=== PATIENT | male | born 1945 | race Caucasian/White ===

== ENCOUNTER → 2017-01-08 | Outpatient (CLI) | payer MEDICARE, OTHER | LOC: SP 08:41 | PROVIDERS: ATTEND Family Medicine | DX: I65.21 Occlusion and stenosis of right carotid artery (principal) | CPT/HCPCS: 93880 ==

== ENCOUNTER 2017-03-28 06:53 | Day surgery (SDC) | payer MEDICARE, OTHER ==
[2017-03-28] MEDS ORDERED: GLYCOPYRROLATE INJ 0.4 MG/2 ML VIAL ONE (07:13)
[2017-03-28] MEDS ORDERED: NALOXONE HCL INJ/PF 0.4 MG/1 ML SDV ONE (07:13)
[2017-03-28] MEDS ORDERED: ONDANSETRON HCL INJ/PF 4 MG/2 ML SDV ONE (07:13)
[2017-03-28] MEDS ORDERED: EPINEPHRINE INJ 1 MG/10 ML DISP.SYRIN ONE (07:14)
[2017-03-28] MEDS ORDERED: GLUCAGON,HUMAN RECOMB 1 MG INJ ONE (07:14)
[2017-03-28] MEDS ORDERED: FLUMAZENIL INJ 0.5 MG/5 ML VIAL IV ONE (07:14)
[2017-03-28] MEDS: MIDAZOLAM 2 MG/2 ML INJ ONE ×5 (07:52→08:07)
[2017-03-28] MEDS: FENTANYL CITRATE INJ/PF 100 MCG/2 ML AMPUL ONE ×3 (07:54→08:03)
--- NOTE | 2017-03-28 08:37 | Operative Report ---
Operative Report DATE OF SURGERY: 03/28/17 PREOPERATIVE DIAGNOSIS: 1. Pandiverticulosis. 2. Multiple small sessile elevations of the rectosigmoid region POSTOPERATIVE DIAGNOSIS: Same OPERATION: 1. Total colonoscopy to cecum. 2. Rectal polypectomy at 20 cm from anal verge SURGEON: SANDEEP SETHI ANESTHESIA: Moderate Sedation TISSUE REMOVED OR ALTERED: 1 polyp COMPLICATIONS: None ESTIMATED BLOOD LOSS: None INTRAOPERATIVE FINDINGS: See below PROCEDURE: Obtaining informed consent the patient was taken from the preoperative holding area to the main endoscopy suite where monitoring devices were attached to the patient. Plan and surgical timeout were conducted The patient was placed in the left lateral decubitus position with knees to chest. A perianal examination was performed. There was no visible or palpable anorectal pathology. Sphincter tone was felt to be normal. The posterior surface of the prostate gland was enlarged but smooth The flexible adult colonoscope was advanced through the anal rectal canal, all the way to the cecum. Visualization of the cecum was achieved and the ileocecal valve, the appendiceal orifice and transillumination of the anterior abdominal wall all appreciated.. This was an excellent study on the well- prepped bowel. The colonoscope was withdrawn slowly and methodically checked and the mucosa carefully. There was no evidence of tumor, stricture, bleeding or polyp. There were extensive diverticulosis primarily of the descending colon and right colon. No evidence of inflammation or stricture The scope was slowly withdrawn through the anal rectal canal; there are multiple small sessile elevations possibly consistent with hyperplastic polyps versus lymphoid hyperplasia. Photos were taken. One small area was removed and labeled rectal polyp at approximately 20 cm from the anal verge. Complete visualization of the rectum was achieved with photodocumentation. The scope was withdrawn to the patient's anus. The patient tolerated the procedure well and was taken to the recovery area in stable condition. Surveillance colonoscopy will depend upon the final pathology report; likely to be in 3 years
--- NOTE | 2017-03-28 08:38 | PDOC DISCHARGE SUMMARY ---
Discharge Summary (SDC) - Discharge Final Diagnosis: Pandiverticulosis and rectal polyp Date of Surgery: 03/28/17 Discharge Date: 03/28/17 Condition: Good Treatment or Instructions: [facility] [place] [id number] POST ENDOSCOPY DISCHARGE INSTRUCTIONS 1. Diet: Start clear liquids that a regular diet as tolerated. 2. Resume all preoperative medications. All oral anticoagulants and aspirins can be resumed 24 hours after procedure. 3. If a polypectomy was performed some bleeding per rectum may occur. This should stop within 3 days. If not, please contact the office. 4. If you had a colonoscopy you may experience some bloating and delayed return of normal bowel function for several days, your regular bowel movement pattern should resume within a week. 5. Please contact [facility] at to make an appointment with Dr. Gardner for 1 to 3 weeks following procedure. 6. If you have any questions or concerns regarding your care,treatment plan or follow up, please contact our office. 7. Per clinical guidelines we recommend you undergo a repeat colonoscopy in 3 years pending final path report Discharge Activity: Activity As Tolerated Home Care Assistance: None Needed Report the Following to Your Physician Immediately: Shortness of Breath, Increase in Pain, Fever over 101 Degrees
[2017-03-28 09:42] VITALS: BP 121/82
== END 2017-03-28 09:39 | disposition home or self-care (01) ==
LOC: END 06:53
PROVIDERS: ATTEND Surgery
PROC: 0DBP8ZX Excision of Rectum, Via Natural or Artificial Opening Endoscopic, Diagnostic (ICD-10-PCS; 2017-03-28)
PROC: 0DBN8ZX Excision of Sigmoid Colon, Via Natural or Artificial Opening Endoscopic, Diagnostic (ICD-10-PCS; principal; 2017-03-28 07:30)
DX: Z12.11 Encounter for screening for malignant neoplasm of colon (principal); K57.30 Diverticulosis of large intestine without perforation or abscess without bleeding; K63.5 Polyp of colon; I10 Essential (primary) hypertension; E07.9 Disorder of thyroid, unspecified; Z87.442 Personal history of urinary calculi; Z79.899 Other long term (current) drug therapy
CPT/HCPCS: 45380; 88305 ×2; J2250; J0171; J3010; J1610; J2310; J2405; J3490

== ENCOUNTER → 2017-07-12 | Outpatient (CLI) | payer MEDICARE, OTHER ==
--- NOTE | 2017-07-12 11:23 | RADIOLOGY REPORT (SQ) ---
EXAM DESCRIPTION: CT LUNG CANCER SCREENING COMPLETED DATE/TIME: 07/12/2017 10:07 am REASON FOR STUDY: TOBACCO USE Z72.0 TOBACCO USE Has the patient had a Chest CT scan within the past year? No Was the patient offered tobacco cessation counseling? Yes Was the patient engaged in shared decision making for this test? Yes Does the patient have signs or symptoms of Lung Cancer? No Is the patient a smoker? Yes smoker for 55 years How many packs per year? 547 How many years since quitting smoking? Not applicable Patients age: 71 COMPARISON: None. TECHNIQUE: Low Dose CT scan performed of the chest without intravenous contrast for purposes of scre ening for lung cancer. Images reviewed with lung, soft tissue and bone windows. Reconstructed coron al and sagittal MPR images reviewed. All images stored on PACS. All CT scanners at this facility use dose modulation, iterative reconstruction, and/or weight based d osing when appropriate to reduce radiation dose to as low as reasonably achievable (ALARA). [facility]: Dose Right [facility]: CareDose [facility]: Dose Right [facility]: Teradose 4D [facility]: [employer] RADIATION DOSE: Up-to-date CT equipment and radiation dose reduction techniques were employed. CTDIv ol: 2.1 mGy. DLP: 88 mGy-cm. mGy. . LIMITATIONS: None FINDINGS: LUNGS AND PLEURA: No masses or nodules. No pleural effusions or calcifications. No pne umothorax. No scarring or interstitial changes. There is bandlike atelectasis along both the right and left posterior costophrenic sulcus HILAR AND MEDIASTINAL STRUCTURES: No identified masses. No abnormal nodes. HEART AND VASCULAR STRUCTURES: Ascending thoracic aorta measures 4.7 cm in greatest diameter. No per icardial effusion. No cardiac devices. CORONARY ARTERY CALCIFICATIONS: Marked calcifications. UPPER ABDOMEN, THYROID, BONES, OTHER SOFT TISSUES: No significant findings. IMPRESSION: NO SIGNIFICANT FINDING IN THE LUNGS ON NON-CONTRASTED CHEST CT. Ectatic/ aneurysmal ascending thoracic aorta. Heavy coronary artery calcification. LUNGRADS: LUNGRADS: 1 NEGATIVE. NO NODULES, OR DEFINITELY BENIGN NODULES MODIFIER: NONE RECOMMENDATION: Continue annual screening with LDCT in 12 months. COMMENT: CRITERIA: No lung nodules. Nodules with specific calcifications: Complete, central, popcorn, concentric rings and fat containin g nodules. TECHNICAL DOCUMENTATION: JOB ID: [id number] Quality ID # [id number]: Final reports with documentation of one or more dose reduction techniques (e.g., Au tomated exposure control, adjustment of the mA and/or kV according to patient size, use of iterative reconstruction technique) 2010 [facility] Radiology
== END ==
LOC: RAD 09:46
PROVIDERS: ATTEND Family Medicine
DX: F17.210 Nicotine dependence, cigarettes, uncomplicated (principal)
CPT/HCPCS: G0297

== ENCOUNTER → 2017-08-09 | Outpatient (CLI) | payer MEDICARE, OTHER ==
--- NOTE | 2017-08-09 12:38 | RADIOLOGY REPORT (SQ) ---
EXAM DESCRIPTION: KUB COMPLETED DATE/TIME: 08/09/2017 11:32 am REASON FOR STUDY: UNSPECIFIED ABDOMINAL PAIN R10.9 UNSPECIFIED ABDOMINAL PAIN COMPARISON: None. NUMBER OF VIEWS: One view. TECHNIQUE: Supine radiographic image of the abdomen acquired. LIMITATIONS: None. FINDINGS: BOWEL GAS PATTERN: Nonobstructive pattern. A moderate amount of fecal material is present . CALCIFICATIONS: No suspicious calcifications. SOFT TISSUES: No gross mass or suggestion of organomegaly. HARDWARE: None in the abdomen. BONES: No acute fracture. No worrisome bone lesions. OTHER: No other significant finding. IMPRESSION: NO RADIOGRAPHIC EVIDENCE FOR ACUTE ABDOMINAL DISEASE. TECHNICAL DOCUMENTATION: JOB ID: [id number] [employer]- All Rights Reserved
== END ==
LOC: OD 11:19
PROVIDERS: ATTEND Urology
DX: R10.9 Unspecified abdominal pain (principal)
CPT/HCPCS: 74000

== ENCOUNTER → 2018-07-11 | Outpatient (CLI) | payer MEDICARE, OTHER ==
--- NOTE | 2018-07-11 08:45 | RADIOLOGY REPORT (SQ) ---
EXAM DESCRIPTION: CT LUNG CANCER SCREENING COMPLETED DATE/TIME: 07/11/2018 8:14 am REASON FOR STUDY: NICOTINE DEPENDENCE F17.210 NICOTINE DEPENDENCE, CIGARETTES, UNCOMPLICATED Has the patient had a Chest CT scan within the past year? Yes Was the patient offered tobacco cessation counseling? Yes Was the patient engaged in shared decision making for this test? Yes Does the patient have signs or symptoms of Lung Cancer? No Is the patient a smoker? Yes How many packs per year? 730 How many years since quitting smoking? Not applicable Patients age: 72 COMPARISON: None. TECHNIQUE: Low Dose CT scan performed of the chest without intravenous contrast for purposes of scre ening for lung cancer. Images reviewed with lung, soft tissue and bone windows. Reconstructed coron al and sagittal MPR images reviewed. All images stored on PACS. All CT scanners at this facility use dose modulation, iterative reconstruction, and/or weight based d osing when appropriate to reduce radiation dose to as low as reasonably achievable (ALARA). [facility]: Dose Right [facility]: CareDose [facility]: Dose Right [facility]: Teradose 4D [facility]: [place] RADIATION DOSE: CT Rad equipment meets quality standard of care and radiation dose reduction techniq ues were employed. CTDIvol: 2.1 mGy. DLP: 83 mGy-cm. mGy. . LIMITATIONS: None FINDINGS: LUNGS AND PLEURA: No masses or nodules. No pleural effusions or calcifications. No pne umothorax. No scarring or interstitial changes. Diffuse changes of obstructive lung disease with e nlarged airspaces. HILAR AND MEDIASTINAL STRUCTURES: No identified masses. No abnormal nodes. HEART AND VASCULAR STRUCTURES: Stable ectasia ascending thoracic aorta 4.7 cm in diameter. No perica rdial effusion. No cardiac devices. CORONARY ARTERY CALCIFICATIONS: Marked calcifications. UPPER ABDOMEN, THYROID, BONES, OTHER SOFT TISSUES: No significant findings. IMPRESSION: NO SIGNIFICANT FINDING IN THE LUNGS ON NON-CONTRASTED CHEST CT. Stable ectasia ascending thoracic aorta. Obstructive lung disease. LUNGRADS: LUNGRADS: 1 NEGATIVE. NO NODULES, OR DEFINITELY BENIGN NODULES MODIFIER: NONE RECOMMENDATION: Continue annual screening with LDCT in 12 months. COMMENT: CRITERIA: No lung nodules. Nodules with specific calcifications: Complete, central, popcorn, concentric rings and fat containin g nodules. TECHNICAL DOCUMENTATION: JOB ID: [id number] Quality ID # [id number]: Final reports with documentation of one or more dose reduction techniques (e.g., Au tomated exposure control, adjustment of the mA and/or kV according to patient size, use of iterative reconstruction technique) 2010 [facility] Radiology Reading location - IP/workstation name: [email or web address]
== END ==
LOC: RAD 07:52
PROVIDERS: ATTEND Family Medicine
DX: Z12.2 Encounter for screening for malignant neoplasm of respiratory organs (principal); F17.210 Nicotine dependence, cigarettes, uncomplicated; I77.810 Thoracic aortic ectasia; J44.9 Chronic obstructive pulmonary disease, unspecified
CPT/HCPCS: G0297

== ENCOUNTER → 2020-07-25 | Outpatient (CLI) | payer MEDICARE, OTHER ==
--- NOTE | 2020-07-25 10:46 | RADIOLOGY REPORT (SQ) ---
EXAM DESCRIPTION: CT LUNG CANCER SCREENING IMAGES COMPLETED DATE/TIME: 07/25/2020 10:04 am REASON FOR STUDY: F17.210 NICOTINE DEPENDENCE, CIGARETTES, UNCOMPLICATED F17.210 NICOTINE DEPENDENC E, CIGARETTES, UNCOMPLICATED Has the patient had a Chest CT scan within the past year? N Was the patient offered tobacco cessation counseling? Y Was the patient engaged in shared decision making for this test? Y Does the patient have signs or symptoms of Lung Cancer? N Is the patient a smoker? Y How many pack years? 56 YEAR How many years since quitting smoking? NA Patients age: 74 COMPARISON: None. 07/13/2019 TECHNIQUE: Low Dose CT scan performed of the chest without intravenous contrast for purposes of scre ening for lung cancer. Images reviewed with lung, soft tissue and bone windows. Reconstructed coron al and sagittal MPR images reviewed. All images stored on PACS. All CT scanners at this facility use dose modulation, iterative reconstruction, and/or weight based d osing when appropriate to reduce radiation dose to as low as reasonably achievable (ALARA). [facility]: Dose Right [facility]: CareDose [facility]: Dose Right [facility]: Teradose 4D [facility]: [employer] RADIATION DOSE: CT Rad equipment meets quality standard of care and radiation dose reduction techniq ues were employed. CTDIvol: 2.1 mGy. DLP: 83 mGy-cm. mGy. . LIMITATIONS: No technical limitations. FINDINGS: LUNG NODULES: Description: Numerous bilateral non solid pulmonary nodules are now presen t Size: These range in size from 1.7 up to 5.6 mm. There is involvement in both the upper and lower lobes. Suspect this represents infectious or inflammatory process. Short-term follow-up recommende d. REMAINING LUNGS AND PLEURA: No pleural effusions or calcifications. No pneumothorax. Underlying stable emphysematous changes HILAR AND MEDIASTINAL STRUCTURES: No identified masses. No abnormal nodes. HEART AND VASCULAR STRUCTURES: Ascending aorta is dilated measured 4.6 cm. This is grossly unchanged from prior study. No cardiac devices. CORONARY ARTERY CALCIFICATIONS: Moderate coronary artery calcification. UPPER ABDOMEN, THYROID, BONES, OTHER SOFT TISSUES: No significant findings. IMPRESSION: PROBABLY BENIGN FINDINGS IN THE LUNGS. OTHER FINDINGS ABOVE. LUNGRADS: LUNGRADS: 3, PROBABLY BENIGN. PROBABLY BENIGN FINDING(S)- SHORT TERM FOLLOW UP SUGGESTED; INCLUDES NODULES WITH A LOW LIKELIHOOD OF BECOMING A CLINICALLY ACTIVE CANCER. MODIFIER: NONE. RECOMMENDATION: Followup routine chest x-ray in 3 months. COMMENT: CRITERIA: Solid nodule(s): ? 6 mm to < 8 mm at baseline OR new 4 mm to < 6 mm. Part solid nodule(s): ? 6 mm total diameter with solid component < 6 mm OR new < 6 mm total diameter . Non solid nodule(s) (GGN): ? [address] or new. TECHNICAL DOCUMENTATION: JOB ID: [id number] Quality ID # [id number]: Final reports with documentation of one or more dose reduction techniques (e.g., Au tomated exposure control, adjustment of the mA and/or kV according to patient size, use of iterative reconstruction technique) 2010 [facility] [place] Radiology Reading location - IP/workstation name: [email or web address]
== END ==
LOC: RAD 09:52
PROVIDERS: ATTEND Family Medicine
DX: F17.210 Nicotine dependence, cigarettes, uncomplicated (principal); Z12.2 Encounter for screening for malignant neoplasm of respiratory organs; R91.8 Other nonspecific abnormal finding of lung field
CPT/HCPCS: G0297

== ENCOUNTER → 2020-07-28 | Outpatient (CLI) | payer MEDICARE, OTHER ==
[2020-07-28 08:57] LABS: ABSOLUTE EOSINOPHILS # (AUTO) 0.1 10^3/uL (0.0-0.6); ABSOLUTE LYMPHOCYTES (AUTO) 1.5 10^3/uL (0.5-4.7); ABSOLUTE MONOCYTES (AUTO) 0.7 10^3/uL (0.1-1.4); ABSOLUTE NEUT (AUTO) 4.7 10^3/uL (1.7-8.2); BASOPHILS % (AUTO) 0.7 % (0-2); HEMATOCRIT 42.7 % (37.9-51.0); HEMOGLOBIN 14.7 g/dL (13.5-17.0); LYMPHOCYTES % (AUTO) 21.6 % (13-45); MEAN CORPUSCULAR HEMOGLOBIN 35.2 pg (27.0-33.4); MEAN CORPUSCULAR HGB CONC 34.4 g/dL (32.0-36.0); MEAN CORPUSCULAR VOLUME 102 fl (80-97); PLATELET COUNT 179 10^3/uL (150-450); RED BLOOD COUNT 4.17 10^6/uL (4.35-5.55); RED CELL DISTRIBUTION WIDTH 13.4 % (11.5-14.0); SEGMENTED NEUTROPHILS % (AUTO) 66.7 % (42-78); TOTAL CELLS COUNTED % (AUTO) 100 %
[2020-07-28 09:25] LABS: ALBUMIN 4.3 g/dL (3.5-5.0); ALKALINE PHOSPHATASE 82 U/L (38-126); ANION GAP 12 (5-19); ASPARTATE AMINO TRANSFERASE 35 U/L (17-59); BILIRUBIN,DIRECT 0.2 mg/dL (0.0-0.4); BILIRUBIN,TOTAL 0.6 mg/dL (0.2-1.3); BLOOD UREA NITROGEN 16 mg/dL (7-20); CALCIUM 10.1 mg/dL (8.4-10.2); CARBON DIOXIDE 26 mmol/L (22-30); CHLORIDE 102 mmol/L (98-107); CHOLESTEROL 182.76 mg/dL (0-200); GLUCOSE 119 mg/dL (75-110); POTASSIUM 4.1 mmol/L (3.6-5.0); TOTAL PROTEIN 6.7 g/dL (6.3-8.2); TRIGLYCERIDES 238 mg/dL (<150)
[2020-07-28 09:37] LABS: DIRECT LDL 111 mg/dL (<100)
[2020-07-28 09:39] LABS: VLDL CHOLESTEROL 47.6 mg/dL (10-31)
[2020-07-28 09:51] LABS: FREE T3 3.9 pg/mL (2.77-5.27); FREE T4 (FREE THYROXINE) 0.95 ng/dL (0.78-2.19)
[2020-07-28 10:04] LABS: THYROID STIMULATING HORMONE 1.1 uIU/mL (0.47-4.68)
== END ==
LOC: OD 07:46
PROVIDERS: ATTEND Family Medicine
DX: E03.9 Hypothyroidism, unspecified (principal); Z13.1 Encounter for screening for diabetes mellitus; E78.5 Hyperlipidemia, unspecified; R73.01 Impaired fasting glucose; R71.8 Other abnormality of red blood cells
CPT/HCPCS: 36415; 80053; 80061; 83036; 84439; 84443; 84481; 85025